=== PATIENT | female | born 1995 | race Hispanic/Latino ===

== ENCOUNTER 2022-01-13 19:26 | Day surgery (SDC) | payer OTHER ==
[2022-01-13 20:02] VITALS: BMI 37.5
[2022-01-13] MEDS ORDERED: hydrALAZINE 20 MG/ML VIAL SLOW IVP PRN (20:25)
[2022-01-13 20:53] LABS: Bilirubin Neg (Negative); Blood, Urine Negative (Negative); Clarity Clear (Clear); Glucose, Urine (Dipstick) Normal (Negative); Ketone, Urine Negative (Negative); Leukocyte 25 (Negative); Nitrite Negative (Negative); Protein, Urine (Dipstick) Negative (Neg-Trace); Urine Culture Reflex No No; Urobilinogen Normal mg/dL (Less than 2)
[2022-01-13 21:12] LABS: Bacteria/HPF None Seen HPF (None Seen); RBC/HPF None Seen HPF (0-3); Squamous Epithelial 0-3 HPF (0-3); WBC/HPF 0-3 HPF (0-3)
[2022-01-13 21:29] LABS: #Monocytes 0.4 10x3/uL (0.0-1.1); #Neutrophils 7.4 10x3/uL (1.5-8.4); %Basophils 0.1 % (0.0-2.0); %Eosinophils 0.1 % (0.0-6.0); %Lymphocytes 6.3 % (18.0-47.0); %Monocytes 5.1 % (0.0-10.0); %Neutrophils 87.9 % (40.0-75.0); Hemoglobin 10.7 g/dL (12.0-15.5); Mean Corpuscular HGB CONC 33.2 g/dL (32.0-36.0); Mean Corpuscular Hemoglobin 28.2 pg (27.0-33.0); Mean Platelet Volume 11.3 fl (7.4-10.4); Platelet Count 197 10x3/uL (150-450); RBC Distribution Width 13.9 % (11.5-14.5); Red Blood Cell (RBC) Count 3.79 10x6/uL (3.90-5.03); White Blood Cell (WBC) Count 8.4 10x3/uL (3.5-10.5)
[2022-01-13 22:32] LABS: SARS-CoV-2 NAA Rapid Test Not Detected (NotDetected)
[2022-01-13] MEDS ORDERED: Oseltamivir 75 MG CAP PO SCH (23:59)
[2022-01-13] MEDS ORDERED: metroNIDAZOLE 500 MG TAB PO SCH (23:59)
== END 2022-01-14 00:14 | disposition home or self-care (01) ==
LOC: CSHLD/OP 19:26
PROVIDERS: ATTEND Obstetrics & Gynecology
DX: O99.512 Diseases of the respiratory system complicating pregnancy, second trimester (principal); J10.1 Influenza due to other identified influenza virus with other respiratory manifestations; O23.592 Infection of other part of genital tract in pregnancy, second trimester; O98.812 Other maternal infectious and parasitic diseases complicating pregnancy, second trimester; B37.3 Candidiasis of vulva and vagina; Z3A.23 23 weeks gestation of pregnancy; Z20.822 Contact with and (suspected) exposure to COVID-19
CPT/HCPCS: 36415; 51701; 85025; 87480; 87510; 87660; 96360; 96361; 99284

== ENCOUNTER 2022-03-06 18:32 | Day surgery (SDC) | payer OTHER ==
[2022-03-06 19:19] VITALS: BMI 39.6
[2022-03-06] MEDS ORDERED: hydrALAZINE 20 MG/ML VIAL SLOW IVP PRN (20:09)
[2022-03-06 20:32] LABS: #Eosinphils 0.1 10x3/uL (0.0-0.5); #Monocytes 0.6 10x3/uL (0.0-1.1); #Neutrophils 7.8 10x3/uL (1.5-8.4); %Basophils 0.2 % (0.0-2.0); %Eosinophils 1.1 % (0.0-6.0); %Lymphocytes 20.1 % (18.0-47.0); %Monocytes 5.2 % (0.0-10.0); %Neutrophils 73.1 % (40.0-75.0); Hemoglobin 10.6 g/dL (12.0-15.5); Mean Corpuscular HGB CONC 32.8 g/dL (32.0-36.0); Mean Corpuscular Hemoglobin 27.5 pg (27.0-33.0); Mean Corpuscular Volume 83.9 fl (81.6-98.3); Mean Platelet Volume 11.9 fl (7.4-10.4); Platelet Count 215 10x3/uL (150-450); Red Blood Cell (RBC) Count 3.85 10x6/uL (3.90-5.03); White Blood Cell (WBC) Count 10.6 10x3/uL (3.5-10.5)
[2022-03-06 20:45] LABS: Bilirubin Neg (Negative); Blood, Urine Negative (Negative); Clarity Clear (Clear); Glucose, Urine (Dipstick) Normal (Negative); Ketone, Urine 5 mg/dL (Negative); Leukocyte 25 (Negative); Nitrite Negative (Negative); Protein, Urine (Dipstick) Negative (Neg-Trace); Urobilinogen Normal mg/dL (Less than 2)
[2022-03-06 20:56] LABS: Bacteria/HPF Rare-Few HPF (None Seen); RBC/HPF None Seen HPF (0-3); Squamous Epithelial 0-3 HPF (0-3)
[2022-03-06 20:57] LABS: Urine Culture Reflex Yes Yes
== END 2022-03-06 23:12 | disposition home or self-care (01) ==
LOC: CSHLD/OP 18:32
PROVIDERS: ATTEND Obstetrics & Gynecology
DX: O99.891 Other specified diseases and conditions complicating pregnancy (principal); N89.8 Other specified noninflammatory disorders of vagina; M54.50 Low back pain, unspecified; Z3A.30 30 weeks gestation of pregnancy; Z86.19 Personal history of other infectious and parasitic diseases
CPT/HCPCS: 36415; 81001; 85025; 87086; 87480; 87510; 87660

== ENCOUNTER 2022-04-29 20:46 | Day surgery (SDC) | payer OTHER ==
[2022-04-29 21:20] VITALS: BMI 40.8
[2022-04-29 21:56] LABS: Fetal Membranes Rupture No Membranes Rupture (No Rupture)
[2022-04-30] MEDS ORDERED: hydrALAZINE 20 MG/ML VIAL SLOW IVP PRN
== END 2022-04-30 00:30 | disposition home or self-care (01) ==
LOC: CSHLD/OP 20:46
PROVIDERS: ATTEND Obstetrics & Gynecology
DX: O36.8130 Decreased fetal movements, third trimester, not applicable or unspecified (principal); Z3A.38 38 weeks gestation of pregnancy; Z79.899 Other long term (current) drug therapy
CPT/HCPCS: 84112; 99282

== ENCOUNTER 2022-05-11 06:00 | Inpatient (IN) | payer OTHER ==
[2022-05-11] MEDS ORDERED: Ondansetron PF 4 MG/2 ML Vial IVP PRN ×2 (10:23→14:15)
[2022-05-11] MEDS ORDERED: Famotidine/PF 20 mg/2ml Vial SLOW IVP PRN (10:23)
[2022-05-11] MEDS ORDERED: Bicitra 30 ML UDCUP PO PRN (10:23)
[2022-05-11] MEDS ORDERED: hydrALAZINE 20 MG/ML VIAL SLOW IVP PRN (10:23)
[2022-05-11] MEDS ORDERED: Promethazine HCl 25 MG/ML VIAL IM PRN ×2 (10:23→14:15)
[2022-05-11] MEDS ORDERED: CEFAZOLIN 2 GM in Sodium Chloride 0.9% 100 ML IVPB SCH (10:30)
[2022-05-11 10:35] VITALS: BMI 41.5
[2022-05-11 10:58] LABS: Hemoglobin 12.2 g/dL (12.0-15.5); Mean Corpuscular HGB CONC 32.6 g/dL (32.0-36.0); Mean Corpuscular Hemoglobin 26.6 pg (27.0-33.0); Mean Corpuscular Volume 81.5 fl (81.6-98.3); Platelet Count 195 10x3/uL (150-450); RBC Distribution Width 15.2 % (11.5-14.5); Red Blood Cell (RBC) Count 4.59 10x6/uL (3.90-5.03); White Blood Cell (WBC) Count 11.5 10x3/uL (3.5-10.5)
[2022-05-11 11:28] LABS: HBSAg Index 0.19 S/CO (0-0.99); Hep B Surf Ag Non-Reactive S/CO (NonReactive); Syphilis Antibody Nonreactive (Nonreactive); Syphilis Antibody Index 0.12 S/CO (<1.00 Non-Reactive)
[2022-05-11] MEDS ORDERED: Fentanyl 100 MCG/2 ML VIAL ONE (12:30)
[2022-05-11] MEDS ORDERED: Morphine PF 10 MG/10 ML VIAL ONE (12:30)
[2022-05-11] MEDS ORDERED: EPINEPHrine 1 MG/ML AMP ONE (12:40)
[2022-05-11] MEDS ORDERED: Oxytocin 10 UNITS/ML VIAL ONE (12:40)
[2022-05-11 12:51] LABS: SARS-CoV-2 NAA Rapid Test Not Detected (NotDetected)
[2022-05-11] MEDS ORDERED: Acetaminophen 325 MG TAB PO PRN (13:53)
[2022-05-11] MEDS ORDERED: Simethicone Chewable 80 MG TAB PO PRN (13:53)
[2022-05-11] MEDS ORDERED: HYDROcodone/Acetaminophen 5/325 mg Tablet PO PRN ×2 (13:53)
[2022-05-11] MEDS ORDERED: Lanolin Ointment 7 GM TUBE TOP PRN (13:53)
[2022-05-11] MEDS ORDERED: diphenhydrAMINE 25 MG CAP PO PRN (13:53)
[2022-05-11] MEDS ORDERED: Boostrix 0.5 ML (Tdap) VIAL (>/=7 yrs of age) IM ONE (13:53)
[2022-05-11] MEDS ORDERED: Misoprostol 200 MCG TAB PR PRN (13:53)
[2022-05-11] MEDS ORDERED: Ketorolac Tromethamine 30 MG/ML VIAL ONE (13:55)
[2022-05-11] MEDS ORDERED: NS w/ Oxytocin 30 units 500 ML IV SCH (14:00)
[2022-05-11] MEDS ORDERED: Ibuprofen 800 MG TAB PO SCH (14:00)
[2022-05-11] MEDS ORDERED: Promethazine HCl 25 MG SUPP PR PRN (14:15)
[2022-05-11] MEDS ORDERED: diphenhydrAMINE 50 MG/ML VIAL IVP PRN (14:15)
[2022-05-11] MEDS ORDERED: Naloxone HCl 0.4 mg/ml Vial IVP PRN ×2 (14:15)
[2022-05-11] MEDS ORDERED: Moisturizing Cream (Eucerin) 113 GM JAR TOP PRN (14:15)
[2022-05-11] MEDS ORDERED: Ondansetron HCl/PF 4 MG/2 ML Vial IVP PRN (14:15)
[2022-05-11] MEDS ORDERED: Meperidine HCl/PF 25 MG/ML VIAL SLOW IVP PRN (14:15)
[2022-05-11] MEDS ORDERED: Fentanyl 100 MCG/2 ML VIAL SLOW IVP PRN (14:15)
[2022-05-11] MEDS ORDERED: Communication Order-Pharmacy FS SCH (14:15)
[2022-05-11] MEDS ORDERED: Naloxone HCl 0.4 mg/ml Vial IV PRN (14:15)
[2022-05-11] MEDS: Lactated Ringer's 1,000 ML IV SCH ×2 (16:45→20:57)
[2022-05-11] MEDS ORDERED: Ketorolac Tromethamine 30 MG/ML VIAL IVP SCH (18:00)
[2022-05-11] MEDS: Ferrous Sulfate 325 MG TAB PO SCH (22:19)
[2022-05-11] MEDS: Ketorolac Tromethamine 30 MG/ML VIAL IVP PRN (22:20)
[2022-05-12] MEDS: Lactated Ringer's 1,000 ML IV SCH ×3 (04:11→15:58)
[2022-05-12] MEDS: Ketorolac Tromethamine 30 MG/ML VIAL IVP PRN ×2 (05:25→11:21)
[2022-05-12 06:01] LABS: Hemoglobin 9.9 g/dL (12.0-15.5); Mean Corpuscular HGB CONC 32.9 g/dL (32.0-36.0); Mean Corpuscular Hemoglobin 27.3 pg (27.0-33.0); Mean Corpuscular Volume 82.9 fl (81.6-98.3); Mean Platelet Volume 13.2 fl (7.4-10.4); Platelet Count 165 10x3/uL (150-450); RBC Distribution Width 15.2 % (11.5-14.5); Red Blood Cell (RBC) Count 3.63 10x6/uL (3.90-5.03); White Blood Cell (WBC) Count 8.8 10x3/uL (3.5-10.5)
[2022-05-12] MEDS: Prenatal Vitamin 1 TAB PO SCH (08:24)
[2022-05-12] MEDS: Ferrous Sulfate 325 MG TAB PO SCH ×2 (08:24→21:50)
[2022-05-12] MEDS ORDERED: HYDROcodone/Acetaminophen 5/325 mg Tablet PO PRN (12:30)
[2022-05-12] MEDS: HYDROcodone/Acetaminophen 5/325 mg Tablet PO PRN (17:02)
[2022-05-12] MEDS: Docusate 100 MG CAP PO SCH (21:50)
[2022-05-12] MEDS: Ibuprofen 800 MG TAB PO SCH (21:50)
[2022-05-13] MEDS: HYDROcodone/Acetaminophen 5/325 mg Tablet PO PRN ×4 (01:43→20:41)
[2022-05-13] MEDS: Lactated Ringer's 1,000 ML IV SCH ×3 (04:04→13:54)
[2022-05-13] MEDS: Ibuprofen 800 MG TAB PO SCH ×3 (06:12→21:42)
[2022-05-13] MEDS: Docusate 100 MG CAP PO SCH ×2 (08:20→21:42)
[2022-05-13] MEDS: Prenatal Vitamin 1 TAB PO SCH (08:20)
[2022-05-13] MEDS: Ferrous Sulfate 325 MG TAB PO SCH ×2 (08:20→21:42)
[2022-05-13 11:54] VITALS: TEMP 98.1
[2022-05-14] MEDS: Lactated Ringer's 1,000 ML IV SCH (05:08)
[2022-05-14] MEDS: Ibuprofen 800 MG TAB PO SCH (05:14)
[2022-05-14] MEDS: HYDROcodone/Acetaminophen 5/325 mg Tablet PO PRN ×2 (05:15→09:48)
[2022-05-14 07:38] VITALS: BP 128/71
[2022-05-14] MEDS: Ferrous Sulfate 325 MG TAB PO SCH (08:38)
[2022-05-14] MEDS: Docusate 100 MG CAP PO SCH (08:38)
[2022-05-14] MEDS: Prenatal Vitamin 1 TAB PO SCH (08:38)
== END 2022-05-14 11:55 | disposition home or self-care (01) | DRG 788 ==
LOC: CSHLD 10:03 → CSHPED 15:15
PROVIDERS: ADMIT Obstetrics & Gynecology; ATTEND Obstetrics & Gynecology
PROC: 10D00Z1 Extraction of Products of Conception, Low, Open Approach (ICD-10-PCS; principal; 2022-05-11)
DX: O34.43 Maternal care for other abnormalities of cervix, third trimester (principal); O33.9 Maternal care for disproportion, unspecified; Z3A.40 40 weeks gestation of pregnancy; Z37.0 Single live birth; Z20.822 Contact with and (suspected) exposure to COVID-19
CPT/HCPCS: 36415; 85027; 86780; 86850; 86900; 86901; 87340; J0171; J0690; J1885; J2274; J2590; J3010; J3490; S0028; U0002